=== PATIENT | male | born 1980 | race Caucasian/White ===

== ENCOUNTER 2017-01-08 08:57 | Emergency (ER) | payer MEDICAID ==
[~2017-01-08] VITALS: Ht 165.1 cm; Wt 93.0 kg
[2017-01-08 09:00] VITALS: Ht 165.1 cm; Wt 93.0 kg
[2017-01-08] MEDS ORDERED: ACET500C5 PO (09:35)
[2017-01-08] MEDS ORDERED: CALC300T4 PO (09:35)
--- NOTE | 2017-01-08 09:46 | ERD ---
ER Documentation Chief Complaint Date/Time DATE: 01/08/17 TIME: 09:37 Chief Complaint back pain radiating to abdomen x 1 week HPI 36-year-old male complaining of back pain and epigastric abdominal pain 1 week. 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 He described the abdominal pain as a burning-like sensation. Patient also complaining of right hip pain, and "ball" on his right hip. Patient stated that he had fallen off a horse onto rocks about 20 years ago, and he has the right hip pain ever since. In addition, patient also complaining of bilateral knee and elbow pain for 1 year. Denies fever or chills. Denies recent falls or injuries. He has congenital malformation of the left hand, but denies any other medical history. ROS All systems reviewed and are negative except as per history of present illness. Medications Home Meds Active Scripts Calcium Carbonate* (Tums X-Str) 300 Mg Tab.chew, 300 MG PO TID Y for epigastric pain, #30 TAB.CHEW Prov:LAZARO POTTER. COMPENSATION EXPERT 01/08/17 Acetaminophen* (Tylophen*) 500 Mg Capsule, 1 CAP PO Q6H Y for PAIN AND OR ELEVATED TEMP, #20 CAP Prov:LAZARO POTTER. COMPENSATION EXPERT 01/08/17 Allergies Allergies: Coded Allergies: No Known Allergy (Unverified , 11/23/13) PMhx/Soc Medical and Surgical Hx: pt denies Medical Hx History of Surgery: No Anesthesia Reaction: No Hx Neurological Disorder: No Hx Respiratory Disorders: No Hx Cardiac Disorders: No Hx Psychiatric Problems: No Hx Miscellaneous Medical Probl: No Hx Alcohol Use: No Hx Substance Use: No Hx Tobacco Use: No Smoking Status: Never smoker Physical Exam Vitals Vital Signs Date Time Temp Pulse Resp B/P Pulse Ox O2 Delivery O2 Flow Rate FiO2 01/08/17 09:00 98.9 69 18 150/66 100 Physical Exam General impression: Well-developed, well-nourished. Alert, oriented, in no acute distress Head: Normocephalic, atraumatic. Eyes: PERRL, EOM normal. Conjunctiva not injected. Neck: Supple, nontender. No lymphadenopathy. No nuchal rigidity. Respiration: Normal respiratory effort. Lungs clear to auscultate bilaterally. No wheezes, rales or rhonchi. Cardiovascular: Regular rate and rhythm. No murmurs or extra heart sounds. Abdomen: Abdomen normal to inspection. Mild epigastric tenderness, no other tenderness. No masses or organomegaly. Bowel sounds normal. Back: Normal to inspection. No midline spine tenderness. Muscle spasm noted in the right lumbar region and right gluteal region.. No CVA tenderness. Extremities: Extremities normal to inspection, nontender. ROM normal. Gait normal. Neuro: Mental status normal, speech normal. ALARM TECHNICIAN grossly intact. Skin: Normal turgor. No rash or lesions. Psych: Normal mood and affect. Results 24 hrs Current Medications Medications (Trade) Dose Ordered Sig/Fiona Route PRN Reason Start Time Stop Time Status Last Admin Dose Admin Miscellaneous Medication (Gi Cocktail (2)) 40 ml ONCE ONCE PO 01/08/17 10:00 01/08/17 10:01 Procedures/MDM Well-appearing 36-year-old male presented to ED with epigastric pain 1 week. GI cocktail given to the patient in the ED. Patient reports relief of gastric pain after GI cocktail. He does not have a right upper right lower quadrant tenderness. Low suspicion for acute appendicitis, cholecystitis, pancreatitis, or other acute abdomen. Patient complaining of back pain 1 week. He is noted to have muscle spasm in the right lumbar region. The "ball" the patient noted on his right hip is also muscle spasm. Patient is advised to apply heating pad and obtain massage. As for his complaint of joint pain, is chronic in nature without any acute exacerbations. I advised patient to follow-up with her PCP for further care and evaluation. Patient appears well, stable for discharge and outpatient management. Medical decision making shared with patient and family. Education provided to patient and family. Patient and family expressed understanding of the plan. Medications on discharge: Tylenol, Tums. Follow-up: Primary care provider in 2-3 days or return to ED if worse. Departure Diagnosis: Primary Impression: Back spasm Additional Impressions: Chronic right hip pain Joint pain Joint pain location: unspecified Qualified Code: M25.50 - Arthralgia, unspecified joint Epigastric abdominal pain Condition: Good Patient Instructions: Back Spasm, No Trauma, Epigastric Pain (Uncertain Cause) [facility] Usted se mares hecho un examen mdico de control que le indica que no est en alex condicin que requiera tratamiento urgente en el Departamento de Emergencia. Un estudio ms profundo y el tratamiento de wiggins condicin pueden esperar sin ningn riesgo hasta que usted sea atendida/o en el consultorio de wiggins mdico o alex cl kian. Es responsabilidad suya arreglar alex soni para el seguimiento del yi. MANEJO DE CONDICIONES NO URGENTES EN EL FUTURO 1) Si usted tiene un mdico de atencin primaria: Usted debera llamar a wiggins mdico de atencin primaria antes de venir al departamento de emergencia. Despus de las horas de consultorio, wiggins doctor o wiggins asociado/a est disponible por telfono. El mdico o enfermero de franklin en el servicio telefnico puede asesorarle por grace medio para atender el problema, o yi contrario se puede programar alex soni. 2) Si usted no tiene un mdico de atencin primaria: Llame al mdico o clnica de referencia que aparece abajo mike las horas de consultorio para hacer alex soni para que le vean. CLINICAS: [facility] [phone] [facility] [facility] [phone] [address] [facility] [facility] [phone] [address] [facility] [place] [phone] [facility]. [place] [phone] [id number] [facility]. [phone] [address] Additional Instructions: Llame al doctor MAANA y toshia alex SONI PARA DENTRO DE 2-3 DEGROOT.Dgale a la secretaria que nosotros le instruimos hacer esta soni.Avise o llame si wiggins condicin se empeora antes de la soni. Regresa aqui si peor o no mejor. LAZARO POTTER. QUAN Jan 08, 2017 09:46
[2017-01-08] MEDS ORDERED: LIDOCAINE/MYLANTA 40 ML BTL PO ONE (10:00)
== END 2017-01-08 09:57 | disposition home or self-care (01) ==
LOC: FTE 08:57
DX: M62.830 Muscle spasm of back (principal); M25.551 Pain in right hip; M25.50 Pain in unspecified joint
CPT/HCPCS: Z7502; Z7610; 99283